=== PATIENT | female | born 2000 | race American Indian/Alaskan Native ===

== ENCOUNTER 2019-08-13 09:04 | Emergency (ER) | payer MEDICAID ==
[2019-08-13 11:23] VITALS: BP 153/84
--- NOTE | 2019-08-13 14:26 | Emergency Department Report ---
ED Back Pain/Injury HPI - General Chief Complaint: Urogenital-Female Stated Complaint: BACK PAIN Time Seen by Provider: 08/13/19 14:21 Source: patient Limitations: No Limitations - History of Present Illness Initial Comments: 18-year-old -Stateless female presents to the emergency room complaining of lower back pain mostly on the right x2 weeks. Patient reports she took ibuprofen which did not help. Patient denies any injury. Patient denies any pelvic pain no dysuria no fever no chills no nausea no vomiting. Patient reports she was treated 2 months ago for bacterial vaginosis. Patient reports she does have a primary care provider is [facility]. Complaint: back pain Onset/Timin -: week(s) Severity scale (0 -10): 5 Quality: aching Improves With: none Worsens With: none - Related Data Allergies Allergy/AdvReac Type Severity Reaction Status Date / Time No Known Allergies Allergy Unverified 08/13/19 09:54 ED Review of Systems ROS: Stated complaint: BACK PAIN Other details as noted in HPI Comment: All other systems reviewed and negative ED Past Medical Hx - Past Medical History Previous Medical History?: No - Surgical History Past Surgical History?: No ED Physical Exam - General Limitations: No Limitations General appearance: alert, in no apparent distress - Head Head exam: Present: atraumatic, normocephalic - ENT ENT exam: Present: mucous membranes moist - GI/Abdominal GI/Abdominal exam: Present: soft, normal bowel sounds - Back Exam Back exam: Present: CVA tenderness (R) - Neurological Exam Neurological exam: Present: alert, oriented X3, normal gait - Psychiatric Psychiatric exam: Present: normal affect, normal mood - Skin Skin exam: Present: warm, dry, intact, normal color. Absent: rash ED Course Vital Signs 08/13/19 10:04 Temperature 98.5 F Pulse Rate 99 H Respiratory 18 Rate Blood Pressure 153/84 O2 Sat by Pulse 100 Oximetry ED Medical Decision Making - Lab Data Laboratory Tests 08/13/19 Unknown Urine Color Yellow Urine Turbidity Clear Urine pH 7.0 Ur Specific [place] 1.027 Urine Protein <15 mg/dl Urine Glucose (UA) Neg Urine Ketones Neg Urine Blood Sm Urine Nitrite Neg Urine Bilirubin Neg Urine Urobilinogen < 2.0 Ur Leukocyte Esterase Neg Urine WBC (Auto) 3.0 Urine RBC (Auto) 5.0 U Epithel Cells (Auto) 5.0 Urine Mucus Few - Medical Decision Making 18-year-old -Stateless female presents to the emergency room complaining of lower back pain mostly on the right x2 weeks. Patient reports she took ibuprofen which did not help. Patient denies any injury. Patient denies any pelvic pain no dysuria no fever no chills no nausea no vomiting. Patient reports she was treated 2 months ago for bacterial vaginosis. Patient reports she does have a primary care provider is [facility]. Urinalysis is negative for any acute findings. I recommend to take ibuprofen and Tylenol and follow-up with your primary care provider. Critical care attestation.: If time is entered above; I have spent that time in minutes in the direct care of this critically ill patient, excluding procedure time. ED Disposition Clinical Impression: Back pain Disposition: DC-01 TO HOME OR SELFCARE Is pt being admited?: No Does the pt Need Aspirin: No Condition: Stable Instructions: Acute Low Back Pain (ED) Additional Instructions: Urinalysis is negative for any acute findings. I recommend to take ibuprofen and Tylenol and follow-up with your primary care provider. Referrals: PRIMARY CARE [Primary Care Provider] - 3-5 Days Forms: Work/School Release Form(ED)
[2019-08-13 16:28] LABS: Bilirubin,Urine NEG (Negative); Blood,Urine SM (Negative); Color,Urine Yellow (Yellow); Mucus,Urine FEW /HPF; Protein,Urine <15 mg/dL mg/dL (Negative); Urobilinogen,Urine < 2.0 mg/dL (<2.0)
== END 2019-08-13 16:42 | disposition home or self-care (01) ==
LOC: ED 09:04
DX: M54.5 Low back pain (principal)
CPT/HCPCS: 81001; 99283

== ENCOUNTER 2021-10-25 18:39 | Emergency (ER) | payer MEDICAID ==
[2021-10-25 18:59] VITALS: BP 142/90
== END 2021-10-25 19:55 | disposition left against medical advice (07) ==
LOC: ED 18:39
DX: R53.1 Weakness (principal); Z53.21 Procedure and treatment not carried out due to patient leaving prior to being seen by health care provider